=== PATIENT | female | born 1960 | race American Indian/Alaskan Native ===

== ENCOUNTER 2018-05-25 09:07 | Day surgery (SDC) | payer OTHER ==
[2018-05-24 14:25] VITALS: BMI 34.3
[2018-05-25] MEDS ORDERED: Propofol 10 mg/ml Inj (20 ML) ONE (11:18)
[2018-05-25] MEDS ORDERED: Succinylcholine 200 mg/10 ml Inj IV ONE (11:18)
[2018-05-25] MEDS ORDERED: Etomidate 20 mg/10ml Inj IV ONE (11:18)
[2018-05-25] MEDS ORDERED: Rocuronium 10 mg/ml (5 ml) ONE (11:18)
[2018-05-25 11:42] LABS: HEMOGLOBIN 12.4 g/dL (12.0-16.0); MEAN CORPUSCULAR HEMOGLOBIN 31.7 pg (27.0-31.0); RBC 3.91 Mil/uL (3.80-5.20); RED CELL DISTRIBUTION WIDTH 15.1 % (11.5-14.5); WHITE BLOOD COUNT 6.3 K/uL (4.8-10.8)
[2018-05-25 11:53] LABS: PARTIAL THROMBOPLASTIN TIME 39.4 Seconds (25.6-37.1)
[2018-05-25 11:55] LABS: BLOOD UREA NITROGEN 22 mg/dl (7-17); CALCIUM 9.1 mg/dL (8.4-10.2); GFR AFRICAN-AMERICAN > 60; GFR NON-AFRICAN AMERICAN 57
[2018-05-25] MEDS ORDERED: Ropivacaine 0.5% 30ML IV ONE (11:55)
[2018-05-25] MEDS ORDERED: MethylPREDNISolone Depo 40 mg/ml Inj ONE (12:18)
[2018-05-25] MEDS ORDERED: ceFAZolin IV 1 gm in Dextrose 2 GM/100 ML BAG IVPB ONE (12:18)
[2018-05-25] MEDS ORDERED: Bupivacaine HCl 0.25% PF (30 ml) Inj ONE (12:18)
[2018-05-25] MEDS ORDERED: Lactated Ringer's 1,000 ML IV ONE (12:24)
[2018-05-25] MEDS ORDERED: Dexamethasone 4 mg/1 ml ONE (12:56)
[2018-05-25] MEDS ORDERED: Lidocaine 2% w Epi 1:100,000 Inj IJ ONE ×2 (13:15)
[2018-05-25] MEDS ORDERED: HYDROmorphone 0.5 mg/0.5 ml ISec IVP PRN (14:50)
--- NOTE | 2018-05-25 14:53 | PCM.ANESB1 ---
Interscalene Block - Brachial Plexus Date of Procedure: 05/25/18 Anesthesiologist: Rui Pre-Procedure Diagnosis: Right rotaor cuff tear Post-Procedure Diagnosis: same Procedure Performed: Interscalene Block of Brachial Plexus Right - Procedure Interscalene Block of Brachial Plexus: This procedure was explained to the patient that it is for post-operative pain management. Consent was obtained after a thorough discussion with the patient regarding the benefits and possible complications of local anesthetic block of the Brachial Plexus at the Interscalene area. The patient was brought to the Operating Room and standard monitors were applied. Time out was held with the circulating nurse to confirm the correct surgery and appropriate block. After applying Oxygen by nasal cannula and administering IV Sedation, the patient's head was gently rotated away from the __right____operative shoulder and the anterior scalene groove was carefully palpated. The ultrasound transducer was then applied to the skin in the transverse plane and the brachial plexus was visualized lateral to the carotid artery and in between the anterior and middle scalene muscles. After identification,the anterior lateral portion of the neck was prepped withChloraprep and Lidocaine 1% was injected subcutaneously for topical analgesia. At this point, a # 22 gauge Stimuplex 2 inches insulated needle was inserted into the interscalene groove and directed in a caudal and midline direction. The needle was inserted lateral to the ultrasound transducer in-plane towards the brachial plexus in a [id number] direction. Needle advancement was performed carefully under direct ultrasound visualization. Nerve stimulator was used and twitched of the affected extremity including the hand brachialis muscles, biceps and the deltoid was obtained at a current of __0.4___MA. After repeated negative aspiration,_2____cc of__0.5%___,__ropiviccaine were injected and this was followed with __28___cc of __0.5___% ____ropivicaine_ . Under ultrasound guidance the local anesthetics were observed surrounding the roots of the brachial plexus. The needle was removed intact. The patient had stable vital signs, was conscious and in no apparent distress. The patient tolerated the interscalene block of the bracheal plexus well with stable vital signs and was prepared for subsequent surgery.
--- NOTE | 2018-05-25 14:57 | PCM.SURG1 ---
Surgeon's Initial Post Op Note - Surgeon's Notes Surgeon: Jac Carr MD Leather Grainer: Trinh Mckeon PA-C Type of Anesthesia: General Endo, Block Regional Pre-Operative Diagnosis: Right shoulder RTC tear Operative Findings: see op report Post-Operative Diagnosis: same as pre-op dx Operation Performed: Right shoulder arthroscopy, rotator cuff repair type II, subacromial decompression Specimen/Specimens Removed: none Estimated Blood Loss: EBL {In ML}: 5 Date of Surgery/Procedure: 05/25/18 Time of Surgery/Procedure: 13:00
[2018-05-25] MEDS ORDERED: Lactated Ringer's 1,000 ML IV SCH (15:00)
[2018-05-25 16:49] VITALS: RESP 18
[2018-05-25 18:19] VITALS: TEMP 97.2
[2018-05-25 18:46] VITALS: BP 148/68; PULSE 78; O2SAT 100
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
== END 2018-05-25 19:05 | disposition home or self-care (01) ==
LOC: H.OPSURG 09:07
PROVIDERS: ATTEND Orthopaedic Surgery
DX: M65.811 Other synovitis and tenosynovitis, right shoulder (principal); S43.431A Superior glenoid labrum lesion of right shoulder, initial encounter; M75.41 Impingement syndrome of right shoulder; M75.51 Bursitis of right shoulder; M75.101 Unspecified rotator cuff tear or rupture of right shoulder, not specified as traumatic; E11.9 Type 2 diabetes mellitus without complications; E78.5 Hyperlipidemia, unspecified; I10 Essential (primary) hypertension; M19.90 Unspecified osteoarthritis, unspecified site
CPT/HCPCS: 29821; 29825; 29827; 36415; 80048; 82948; 85027; 85610; 85730; J0171; J0330; J0690; J1100; J2001; J2405; J2704; J2765; J3010; J7120